=== PATIENT | female | born 1995 | race Asian ===

== ENCOUNTER 2018-03-03 16:18 | Emergency (ER) | payer OTHER ==
[2018-03-03 16:24] VITALS: BP 142/45; PULSE 93; TEMP 98.7; BMI 30.1
--- NOTE | 2018-03-03 16:25 | PDOC ---
Rapid Medical Evaluation Chief Complaint: Respiratory Time Seen by Provider: 03/03/18 16:21 Medical Evaluation: Allergies Allergy/AdvReac Type Severity Reaction Status Date / Time No Known Allergies Allergy Verified 06/06/14 09:11 03/03/18 16:21 I have performed a brief in person evaluation. The patient presents with a CC of : cough HPI: Pt is a 22 YO female with a cough x 3 weeks. Denies sick contacts, denies recent travel PE: Skin: Clear Lungs: Clear Heart: RRR Abd: no pain upon palpation MS: Moves all extremities without difficulty Neuro: Alert Psych: Appropriate affect I have ordered the following: nothing at this time The patient will proceed to [facility] for further evaluation. 03/03/18 16:24 Discharge Disposition - Diagnosis Cough - Referrals Referrals: Moreno Antonio MD [Primary Care Provider] - - Patient Instructions - Post Discharge Activity
--- NOTE | 2018-03-03 16:41 | PDOC ---
History of Present Illness - General Chief Complaint: Respiratory Stated Complaint: Sore Throat/ABD PAIN Time Seen by Provider: 03/03/18 16:21 - History of Present Illness Initial Comments: 03/03/18 16:40 22-year-old female without comorbidities presents for evaluation of 3 weeks of cough without systemic symptoms Past History - Past Medical History Allergies/Adverse Reactions: Allergies Allergy/AdvReac Type Severity Reaction Status Date / Time No Known Allergies Allergy Verified 03/03/18 16:24 Home Medications: Ambulatory Orders NK [No Known Home Medication] 03/03/18 COPD: No - Immunization History Immunization Up to Date: Yes - Suicide/Smoking/Psychosocial Hx Smoking Status: No Smoking History: Never smoked Number of Cigarettes Smoked Daily: 0 Hx Alcohol Use: No Substance Use Type: None Review of Systems - Review of Systems Constitutional: No: Fever Respiratory: Yes: Cough *Physical Exam - Vital Signs Last Vital Signs Temp Pulse Resp BP Pulse Ox 98.7 F 93 H 18 142/45 L 100 03/03/18 16:21 03/03/18 16:21 03/03/18 16:21 03/03/18 16:21 03/03/18 16:21 - Physical Exam Comments: 03/03/18 16:40 HEAD: NC/AT EYES: Conjuntiva clear Ears: Canals and TM's normal NOSE: No d/c THROAT: Moist mucous membrances, oral pharanx clear, uvula midline NECK: Supple without adenopathy CARDIAC: S1 S2 LUNGS: CTA Full and Equal breath sounds ABDOMEN: Soft NT ND MS: Full ROM in all joints without edema NEUROLOGIC: No gross sensory or motor deficits, NVID SKIN: Normal color and temperature no lesions or rashes *DC/Admit/Observation/Transfer Diagnosis at time of Disposition: Cough, Upper respiratory infection - Discharge Dispostion Disposition: HOME Condition at time of disposition: Stable Decision to Admit order: No - Referrals Referrals: Moreno Antonio MD [Primary Care Provider] - - Patient Instructions Printed Discharge Instructions: DI for Viral Upper Respiratory Infection -- Adult Additional Instructions: Return to the emergency room should symptoms worsen or go unresolved continue with Mucinex DM as directed follow-up with your primary care physician in one to 2 days for further evaluation and treatment options - Post Discharge Activity
== END 2018-03-03 16:44 | disposition home or self-care (01) ==
LOC: JERFT 16:18
DX: J06.9 Acute upper respiratory infection, unspecified (principal); B97.89 Other viral agents as the cause of diseases classified elsewhere
CPT/HCPCS: 99281-25